=== PATIENT | female | born 1945 | race Caucasian/White ===

== ENCOUNTER → 2017-02-23 | Outpatient (RCR) | payer OTHER | END | disposition home or self-care (01) | LOC: PTY 02-08 13:18 | DX: M54.41 Lumbago with sciatica, right side (principal); M25.561 Pain in right knee | CPT/HCPCS: 97110; 97140; 97161; G0283 ==

== ENCOUNTER 2017-03-02 09:00 | Outpatient (RCR) | payer OTHER | END 2017-03-26 | disposition home or self-care (01) | LOC: PTY 09:00 | DX: M54.41 Lumbago with sciatica, right side (principal); M25.561 Pain in right knee | CPT/HCPCS: 97110; 97140; G0283 ==

== ENCOUNTER 2017-04-03 10:15 | Outpatient (RCR) | payer OTHER | END 2017-04-26 | disposition home or self-care (01) | LOC: PTY 10:15 | DX: M54.41 Lumbago with sciatica, right side (principal); M25.561 Pain in right knee | CPT/HCPCS: 97110; 97140; G0283 ==

== ENCOUNTER 2017-04-27 10:30 | Outpatient (RCR) | payer OTHER | END 2017-05-24 | disposition home or self-care (01) | LOC: PTY 10:30 | DX: M54.41 Lumbago with sciatica, right side (principal); M25.561 Pain in right knee | CPT/HCPCS: 97110; 97112; 97140; G0283 ==